=== PATIENT | male | born 1965 | race Caucasian/White ===

== ENCOUNTER 2023-07-21 10:04 | Outpatient (AMB) | payer OTHER, SELFPAY ==
--- NOTE | 2023-07-21 10:12 | MHC.PC.OV ---
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 Assistant Produce Manager Required: No Accompanied by: Self / Same As Patient Allergies No Known Allergies Allergy (Verified 07/21/23 11:20) Medication List - Last Reconciled 07/21/23 by Fadi Salinas MD No Known Home Meds Tobacco use date assessed: 07/21/23 Dental Screening Dental Screen Date: 07/21/23 Did you have a dental visit in the last 12 months?: Yes Did you have a dental problem in the last 6 months where you did not have access to dental care?: No Was dental information given to patient?: Patient has dentist HPI 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 Physical 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 HPI Details Patient comes in today for his annual physical examination and to establish care - is a new patient to the practice His last PCP was in [place] but states that he has not seen his doctor since 2017 States that he has some concerns about his health as he is getting older and feels like he has not had a proper check up in a while Notes that he has been experiencing recurrent pain over the base of his right thumb for a while now but otherwise has no acute issues Denies any history of injury or trauma to his right hand or thumb He denies any headaches or dizziness Denies any chest pains, no shortness of breath but reports experiencing on and off mild chest tightness at times, especially in the fall (kiana) and with increased exertion - is not sure if this is due to his asthma or not Will need his Albuterol inhaler Rx refilled No nausea/ vomiting, no abdominal pain No change in bowel habits noted Denies any acute urinary symptoms He has never had a screening colonoscopy done in the past [facility] Medical History (Updated 07/23/23 @ 21:15 by Fadi Salinas MD) Asthma Surgical History (Updated 07/21/23 @ 11:24 by Fadi Salinas MD) Hx of inguinal hernia repair Family History (Updated 07/21/23 @ 11:24 by Fadi Salinas MD) Father Heart attack Brain cancer Brother Ulcerative colitis Other Hypertension Social History Housing: Apartment Patient Tobacco Use Status: Never used Tobacco e-Cigarette/Vaping Use: Never Used service: No Current occupational status: employed Current occupational exposures/hazards: No Cognitive needs: No Hearing needs: No Vision needs: No Questionnaire PHQ-9 Over the last 2 weeks, how often have you been bothered by any of the following problems? 1. Little interest or pleasure in doing things: not at all 2. Feeling down, depressed, or hopeless: not at all 3. Trouble falling or staying asleep, or sleeping too much: not at all 4. Feeling tired or having little energy: not at all 5. Poor appetite or overeating: not at all 6. Feeling bad about yourself - or that you are a failure or have let yourself or your family down: not at all 7. Trouble concentrating on things, such as reading the newspaper or watching television: not at all 8. Moving or speaking so slowly that other people could have noticed. Or the opposite - being so fidgety or restless that you have been moving around a lot more than usual: not at all 9. Thoughts that you would be better off or of hurting yourself in some way: not at all Total score: 0 Depression Screening Interpretation: Negative Depression Screening Done: Yes 82623 - PHQ-9 Billing: Yes Source: Developed by Drs. Wade Flores, Bekah Blackburn, Renaldo Oliver and colleagues, with an educational reena from [employer]. Thrive Questionnaire Date Thrive assessed: 07/21/23 I am a: Patient What is your living situation today?: I have a steady place to live Within the past 12 months, did the food you bought not last and you didn't have the money to get more?: Never true Within the past 12 months, did you worry whether your food would run out before you got money to buy more?: Never true Do you have trouble paying for medicines?: No Do you have trouble getting transportation to medical appointments?: No Do you have trouble paying your heating and electricity bill?: No Do you have trouble taking care of your child, family member or friend?: No Do you have trouble with day-to-day activities such as bathing, preparing meals, shopping, managing finances, etc.?: No Are you currently unemployed and looking for a job?: No Are you interested in more education?: No Please select the resources that you would like help with: None Currently or been in a relationship where the following occur: no concerns reported AUDIT C Alcohol Use Questionnaire (AUDIT-C) 1. How often do you have a drink containing alcohol?: Monthly or less 2. How many drinks containing alcohol do you have on a typical day when you are drinking?: 1 or 2 3. How often do you have six or more drinks on one occasion?: Never Total Score: 1 Score Reviewed/Action Taken: Yes CARMEN-7 AMB Questionnaire CARMEN-7 Date CARMEN - 7 assessed: 07/21/23 Feeling nervous, anxious, or on edge: 0 = Not at all Not being able to stop or control worryin = Not at all Worrying too much about different things: 0 = Not at all Trouble relaxin = Not at all Being so restless that it is hard to sit still: 0 = Not at all Becoming easily annoyed or irritable: 0 = Not at all Feeling afraid as if something awful might happen: 0 = Not at all Total CARMEN-7 score (0-4 normal; 5-9 mild; 10-14 moderate; 15-21 severe): 0 Source: Developed by Drs. Wade Flores, Bekah Blackburn, Renaldo Oliver and colleagues, with an educational reena from [employer]. Review of Systems Const Denies chills, Reports difficulty sleeping (at times), Denies fatigue, Denies fever(s), Denies headache(s), Denies malaise and Denies weakness Eyes Denies blurry vision, Denies change in vision, Denies irritation and Denies itchy eyes ENT Denies dysphagia, Denies dizziness, Denies otalgia, Denies headache(s), Denies nasal congestion, Denies neck pain, Denies odynophagia and Denies sore throat Card Denies chest pain, Denies rapid heart rate, Denies irregular heart rhythm, Denies palpitations and Denies dyspnea Resp Denies chest congestion (but (+) chest tightness at times, especially in the fall and with exertion), Denies cough, Denies dyspnea and Denies wheezing GI Denies abdominal pain, Denies bloating, Denies constipation, Denies dysphagia, Denies heartburn, Denies diarrhea, Denies nausea, Denies odynophagia and Denies vomiting Denies hematuria, Denies difficulty urinating, Denies dysuria, Denies urinary frequency and Denies urinary urgency Musc Denies back pain, Reports arthralgias (right wrist, at the base of the thumb), Denies joint swelling, Denies muscle weakness and Denies neck pain Skin/Breast Denies change in pigmentation, Denies lesions, Denies rash and Denies unusual bruising Neuro Denies dizziness, Denies headache(s), Denies paresthesias and Denies weakness Endo Denies fatigue and Denies palpitations Aller/Immun Denies itchy eyes and Denies wheezing Physical exam (Primary Care) Vital Signs: Last Vital Signs Pulse 82 07/21/23 10:23 BP 130/80 07/21/23 11:29 Pulse Ox 97 07/21/23 10:23 Oxygen Delivery Method Room Air 07/21/23 10:23 BMI result Body Mass Index 24.2 Tobacco/Smoking Status: Tobacco use Status Tobacco use date assessed 07/21/23 07/21/23 10:31 Patient Tobacco Use Status Never used Tobacco 07/21/23 10:31 e-Cigarette/Vaping Use Never Used 07/21/23 10:31 PHQ-9: PHQ-9 Score PHQ-9: Total score 0 07/23/23 13:57 Depression Screening Interpretation: Negative Thrive Assessment: Date of Thrive Assessment Date Thrive assessed 07/21/23 07/21/23 10:31 Currently or been in a relationship where the following occur: no concerns reported Const General: no acute distress, alert and awake Orientation/consciousness: patient oriented x3 HENMT Head: Yes normocephalic and Yes atraumatic Ears: external ears normal, TM's normal bilaterally and EAC's normal General nose exam: No nasal discharge present Face and sinus: Yes normal facial exam and Yes sinuses nontender Teeth and gingiva: dentition normal Throat: Yes posterior oropharynx normal and Yes tonsils normal (no TP congestion) Eyes Eyelids: Yes eyelids normal Conjunctivae: conjunctivae normal Pupils: Equal, round and reactive pupils present EOM: EOMs intact bilaterally Neck Neck: Yes no lymphadenopathy and Yes supple Thyroid: Thyroid normal Resp Auscultation: clear to auscultation bilaterally, no rales and no wheezes Cardio Rate: regular rate Rhythm: regular rhythm Heart sounds: Murmur heart sound present systolic soft, II/ and at the left sternal border GI Palpation (GI): Soft to palpation, nontender and No hepatosplenomegaly present Auscultation: normal bowel sounds General: Yes no CVA tenderness Back/Spine/Pelvis Back: no CVA tenderness Thoracic/Lumbar Spine: thoracic and lumbar spine normal to inspection Skin Lesions: no lesions Rashes: no rashes Neuro General: patient oriented x3, moves all extremities, no focal motor deficits and CN's II-XI intact bilaterally Cranial nerves: Yes Equal, round and reactive pupils present Cognition (Neuro): normal cognition Gait exam (Neuro): Normal gait present Extrem General: Yes no clubbing, cyanosis or edema Right upper extremity: Extremity exam: right hand Details: tenderness Location: of the thumb Location: at the MCP joint and no swelling Assessment and Plan Assessment & Plan (1) Annual physical exam: Code(s): Z00.00 - Encounter for general adult medical examination without abnormal findings Plan: Check labs (2) Cardiac murmur: Code(s): R01.1 - Cardiac murmur, unspecified Plan: Advised that he has a soft systolic murmur heard on physical exam, most prominent along the upper left sternal border Patient recalls being told that he has a heart murmur when he was younger and that he eventualy outgrew it when he got older Advised that his current murmur may be a flow murmur instead and this is likely due to the close proximity of his heart to his chest wall Will send him for an echocardiogram for further evaluation (3) Asthma: Code(s): J45.909 - Unspecified asthma, uncomplicated Qualifiers: Asthma complication type: uncomplicated Asthma persistence: intermittent Asthma severity: mild Qualified Code(s): J45.20 - Mild intermittent asthma, uncomplicated Plan: Mild; continue Albuterol HFA 1 to 2 inhalations Q 6 hours PRN - Rx refilled (4) Pain of right thumb: Code(s): M79.644 - Pain in right finger(s) Plan: Will send patient for x-rays of the right hand/thumb for further evaluation (5) Colon cancer screening: Code(s): Z12.11 - Encounter for screening for malignant neoplasm of colon Plan: Will refer patient to GI for screening colonoscopy - has never had one done in the past Plan Follow up in 6 months Orders: Orders Complete Blood Count Auto Diff 07/21/23 Z00.00 - Encounter for general adult medical examination without abnormal findings Comprehensive [place]. Panel Fast 07/21/23 Z00.00 - Encounter for general adult medical examination without abnormal findings Lipid Panel 07/21/23 E78.00 - Pure hypercholesterolemia, unspecified, Z00.00 - Encounter for general adult medical examination without abnormal findings TSH reflex Free T4 07/21/23 E78.00 - Pure hypercholesterolemia, unspecified, Z00.00 - Encounter for general adult medical examination without abnormal findings UA CC w/rflx Micro + Cult 07/21/23 R30.0 - Dysuria, Z00.00 - Encounter for general adult medical examination without abnormal findings CA echo transthoracic complete 07/21/23 R01.1 - Cardiac murmur, unspecified Vitamin D 25-OH Total 07/21/23 E55.9 - Vitamin D deficiency, unspecified, Z00.00 - Encounter for general adult medical examination without abnormal findings Prostate Specific Antigen 07/21/23 N40.0 - Benign prostatic hyperplasia without lower urinary tract symptoms, Z00.00 - Encounter for general adult medical examination without abnormal findings XR hand RT min 3V 07/21/23 M79.644 - Pain in right finger(s) Referrals Gastroenterology Referral Z12.11 - Encounter for screening for malignant neoplasm of colon Medications: New albuterol sulfate 90 mcg/actuation (Ventolin HFA) 2 puffs inhalation Q6H 30 days PRN 8.5 grams 5RF shortness of breath or wheezing Coding Level of Care Code New Pt Prev Care 40-64y(69903) Diagnoses Annual physical exam Z00.00 Cardiac murmur R01.1 Mild intermittent asthma without complication J45.20 Asthma complication type: uncomplicated Asthma persistence: intermittent Asthma severity: mild Pain of right thumb M79.644 Colon cancer screening Z12.11
[2023-07-21 10:23] VITALS: BP 142/100; PULSE 82; O2SAT 97; BMI 24.2
[2023-07-21 11:29] VITALS: BP 130/80
== END 2023-07-21 11:41 | disposition home or self-care (01) ==
PROVIDERS: PCP Internal Medicine; Visit Provider Internal Medicine
DX: Z00.00 Encounter for general adult medical examination without abnormal findings (principal); R01.1 Cardiac murmur, unspecified; J45.20 Mild intermittent asthma, uncomplicated; M79.644 Pain in right finger(s); Z12.11 Encounter for screening for malignant neoplasm of colon
CPT/HCPCS: 99386

== ENCOUNTER → 2023-08-10 13:37 | Outpatient (REF) | payer OTHER, SELFPAY ==
--- NOTE | 2023-08-10 13:42 | CA_ITS ---
Transthoracic Echocardiogram Patient (Last, First, Middle): Darren Hdez J Gender: Male Date of : 1965 Age: 58 Procedure Date: 08/10/2023 Procedure Type: Transthoracic Echocardiogram Location: OP Height: 182.88 cm Weight: 74.84 kg BSA: 1.96 m2 Heart Rate: 65 bpm BP: 120 / 85 mmHg School Manager: NELSON Referring MD: Fadi Salinas MD Fleet Service Clerk: Pravin Young MD Symptoms: R01.1 - Cardiac murmur, unspecified Study Quality: Adequate ECG Rhythm: Sinus Conclusions: - 1. Normal LV ejection fraction at 60-65% with normal diastolic filling pattern 2. Bicuspid aortic valve without any abnormal Doppler findings 3. Normal RV systolic pressure 4. Moderately dilated aortic root at 4.6 cm and upper limits of normal ascending aortic size at 3.6 cm 5. No gross pericardial effusion Findings Left Ventricle Normal left ventricular size, thickness, and systolic function. The visually estimated ejection fraction is between 60-65%. Spectral Doppler is indicative of a normal filling pattern. Peak GLS is not tracking completely and therefore no reliable. Right Ventricle Normal right ventricular cavity size and systolic function. Atria The left atrium is likely dilated. Interatrial shunt cannot be excluded. The right atrium is normal in size. Aortic Valve There is a bicuspid aortic valve. There is no aortic valve stenosis. There is no aortic valve regurgitation. Mitral Valve Normal mitral valve structure and function. There is trace mitral valve regurgitation. There is no mitral valve stenosis. Pulmonic Valve The pulmonic valve is likely normal. Tricuspid Valve Normal tricuspid valve structure. There is trace tricuspid valve regurgitation. The right ventricular systolic pressure is normal. The right ventricular systolic pressure is 21 mmHg. Normal right atrial pressure. There is no evidence of pulmonary hypertension. Great Vessels The pulmonary artery was not well visualized. There is moderate dilatation of the sinuses of Valsalva measuring 4.60 cm. Venous The inferior vena cava is normal in size and collapses greater than 50% with inspiration. Pericardium/Pleural There is no evidence of pericardial effusion. Prior Study Comparison No prior study available for comparison. Measurements 2D Linear Measurements IVSd: 1.12 0.6-0.9/0.6-1.0 cm LVIDd: 5.19 3.9-5.3/4.2-5.9 cm LVIDd Index: 2.65 2.4-3.2/2.2-3.1 cm/m2 LVIDs: 3.76 2.0-3.6 cm LVPWd: 0.71 0.7-1.1 cm LA Diam: 3.20 2.7-3.8/3.0-4.0 cm LAIDs Index: 1.63 1.5-2.3 cm/m2 LV Mass: 213.63 67-162/88-224 g LV Mass Index: 108.99 43-95/49-115 g/m2 LVOT Diam: 2.60 3.0+(-)1.3 cm 2D Systolic Function EF 4C: 53.00 >55% EF 2C: 68.80 >55% EF BiP: 60.80 >55% Mitral Valve MV Pk E: 0.86 MV PK A: 0.55 MV Decel Time: 211.00 E/A: 1.50 E'Lateral: 9.25 E'Medial: 5.98 E/E' Med: 14.30 E/E' Lat: 9.30 PHT: 62.00 MVA PHT: 3.55 Decel [place]: 4.06 Aortic Valve AoV Pk Alex: 1.60 AoV Mn Alex: 1.14 AoV VTI: 0.32 AoV Pk Grad: 10.00 Aov Mn Grad: 6.00 RUBEN Cont.VTI: 2.58 LVOT LVOT Pk Alex: 0.73 LVOT Mn Alex: 0.54 LVOT VTI: 0.15 LVOT Pk Grad: 2.00 LVOT Mn Grad: 1.00 LVOT Diam: 2.60 LVOT Area: 5.31 Diastolic Function MV Pk E: 0.86 MV Pk A: 0.55 E/A: 1.50 E'Medial: 5.98 E/E' Med: 14.30 E' Laterial: 9.25 E/E' Lat: 9.30 Right Ventricle TAPSE (mm): 19.30 TVS' Alex: 9.79 Tricuspid Valve TR Pk Alex: 2.13 TR Pk Grad: 18.00 RA Press: 3.00 RVSP: 21.00 Great Vessels Aorta Sinus of Valsalva: 4.60 2.0-3.5 cm Ao Asc: 3.60 2.1-3.4 cm Ao Arch: 3.20 Pulmonary Veins Pulm Vein S/D 1.20 Pulmonary Valve PV Pk Alex: 0.84 Peak PV Grad: 3.00 ID Pk Alex: 1.93 Updated in Other Vendor System with Status of Final Pravin Young MD electronically signed on 08/10/2023 3:22:50 PM with status of Final
== END ==
LOC: HO.CARD 13:37
PROVIDERS: PCP Internal Medicine; Visit Provider Internal Medicine
DX: R01.1 Cardiac murmur, unspecified (principal)
CPT/HCPCS: 93306

== ENCOUNTER → 2023-08-10 13:42 | Outpatient (BNV) | payer OTHER, SELFPAY | PROVIDERS: PCP Internal Medicine; Visit Provider Internal Medicine Cardiovascular Disease | DX: R01.1 Cardiac murmur, unspecified (principal) | CPT/HCPCS: 93306 ==

== ENCOUNTER 2023-08-30 15:45 | Outpatient (AMB) | payer OTHER, SELFPAY ==
--- NOTE | 2023-08-30 15:47 | MHC.OFFVIS ---
Intake Vital Signs 08/30/23 15:48 Height 6 ft 1 in Weight 176 lb 5.917 oz BMI 23.3 BP 125/83 Blood Pressure Location Lt brachial Position Sitting Pulse 77 Intake Visit Reasons: Colonoscopy Screening Intake Note: Darren presents in the office as a new patient colonoscopy screening. CC: No concerns today just due for a colonoscopy. Traffic Control Technician Required: No Allergies No Known Allergies Allergy (Verified 08/30/23 15:49) HPI Colonoscopy Screening HPI Details 58 year old? male here today for pre colonoscopy screening.? Patient was sent to us by his PCP.? This is his first colonoscopy screening.? Patient denies any gastrointestinal symptoms in the past or at present.? Denies any personal or family history of colon polyps, or cancer.? Patient's brother was diagnosed with ulcerative colitis. Patient denies any abdominal pain, diarrhea, no mucus in his stools. Denies melena, hematochezia. Denies history of difficulty with sedation or anesthesia in the past.? Negative for history of sleep apnea.? Denies any history of cardiac, renal, pulmonary, or hepatic disease.?? No history of infectious? diseases like hepatitis A, B, C, HIV or tuberculosis.? Patient is not on any anticoagulation therapy. [facility] Medical History Asthma Surgical History Hx of inguinal hernia repair Family History (Updated 08/30/23 @ 15:51 by SURESH Gloria) Father Brain cancer Brother Ulcerative colitis Heart attack Mother Heart problem Other Hypertension Social History Housing: Apartment Patient Tobacco Use Status: Never used Tobacco e-Cigarette/Vaping Use: Never Used service: No Current occupational status: employed Current occupational exposures/hazards: No Cognitive needs: No Hearing needs: No Vision needs: No Review of Systems Const Denies weight gain and Denies weight loss ENT Reports no additional complaints, Denies dysphagia and Denies odynophagia Card Reports no additional complaints Resp Reports no additional complaints GI Denies abdominal pain, Denies belching, Denies melena, Denies bloating, Denies change in bowel habits, Denies dysphagia, Denies excessive flatus, Denies dyspepsia, Denies heartburn, Denies diarrhea, Denies loose stools, Denies nausea, Denies odynophagia and Denies vomiting Reports no additional complaints Musc Reports no additional complaints Neuro Reports no additional complaints Psych Reports no additional complaints Endo Reports no additional complaints Physical Exam Vital Signs: Last Vital Signs Pulse 77 08/30/23 15:48 BP 125/83 08/30/23 15:48 BMI result Body Mass Index 23.3 Const General: healthy appearing, no acute distress and well developed Nutritional Appearance: well nourished Orientation/consciousness: patient oriented x3 Resp Effort & Inspection: normal respiratory effort, able to speak in complete sentences, no tracheal deviation and symmetric chest movement Auscultation: clear to auscultation bilaterally Cardio Rate: regular rate GI Inspection: Yes normal to inspection and No distended Palpation (GI): Soft to palpation, not firm, nontender and No hepatosplenomegaly present Auscultation: normal bowel sounds General: Yes no CVA tenderness Back/Spine/Pelvis Back: no CVA tenderness Skin General skin exam: elasticity normal, turgor normal and dry skin Neuro General: patient oriented x3 Psych Appearance: grossly normal Mental Status: mental status grossly normal Assessment & Plan Assessment & Plan (1) Colon cancer screening: Code(s): Z12.11 - Encounter for screening for malignant neoplasm of colon Plan Patient denies any GI, cardiac or respiratory symptoms.? Denies any issues with anesthesia in the past.? Denies any history of sleep apnea.? No history infectious diseases in the past or present.? Not on any anticoagulation therapy.? No family or personal history of colon cancer or polyps.? Patient denies melena, hematochezia, unintentional weight loss or ribbon like stools.? Discussed at length the pre-procedure,? prep, diet & medications as well as what to expect prior, during and after the procedure.?? Patient has a history of asthma has been using his albuterol inhaler almost daily. Patient was encouraged to bring his inhaler to the hospital so he can use it before going for the procedure. Stressed the importance of good bowel prep. ?Recommended the use of Vaseline or Calmoseptine OTC & baby wipes with bowel movements to promote comfort.? ?Patient verbalizes understanding and agrees to plan of care.? He was given the opportunity to ask questions and all questions answered.? We will see him after the procedure.? Medications: New polyethylene glycol 3350 (Miralax) As directed by gastroenterology department at [facility] 238 grams PO ONCE 238 grams 0RF Z12.11 - Encounter for screening for malignant neoplasm of colon bisacodyl (Dulcolax (bisacodyl)) take 4 tabs at noon the day before your colonoscopy 20 mg (4 x 5 mg) PO ONCE 1 day 4 tabs 0RF Z12.11 - Encounter for screening for malignant neoplasm of colon Coding Level of Care Code New Pt Level 3 (71791) Diagnoses Colon cancer screening Z12.11 Time Spent (min) 40 Comment 30 minutes spent with patient and additional 10 minutes spent reviewing his records
[2023-08-30 15:48] VITALS: BP 125/83; PULSE 77; BMI 23.3
== END 2023-08-30 17:09 | disposition home or self-care (01) ==
PROVIDERS: PCP Internal Medicine; Visit Provider Nurse Practitioner Family
DX: Z01.818 Encounter for other preprocedural examination (principal); Z12.11 Encounter for screening for malignant neoplasm of colon
CPT/HCPCS: S0285

== ENCOUNTER → 2023-08-30 15:45 | Outpatient (BNVA) | payer OTHER, SELFPAY | PROVIDERS: PCP Internal Medicine; Visit Provider Nurse Practitioner Family ==

== ENCOUNTER 2024-01-01 10:33 | Day surgery (SDC) | payer OTHER, SELFPAY ==
--- NOTE | 2023-12-28 13:00 | HO.ANESPROP2 ---
Documented by User: Yudy Vargas NP 12/28/23 13:01 HPI - Anesthesia Eval Consult details Narrative: 58yo M for Colonoscopy [facility] Active Problems Active Problems: All Active Problems Colon cancer screening (Acute) Pain of right thumb (Acute) Asthma (Acute) Cardiac murmur (Acute) Annual physical exam (Acute) Past Medical History Medical History Asthma Family History Family History (Updated 08/30/23 @ 15:51 by SURESH Gloria) Father Brain cancer Brother Ulcerative colitis Heart attack Mother Heart problem Other Hypertension Surgical History Surgical History Hx of inguinal hernia repair Social History Social History Housing: Apartment Patient Tobacco Use Status: Never used Tobacco e-Cigarette/Vaping Use: Never Used Use of substances other than those prescribed or required for medical reasons: No Are you DNR?: No Advance Directives: No Advance Directives Information Provided: Yes service: No Current occupational status: employed Current occupational exposures/hazards: No Cognitive needs: No Hearing needs: No Vision needs: No Meds Allergies Allergy/AdvReac Type Severity Reaction Status Date / Time No Known Allergies Allergy Verified 08/30/23 15:49 Exam Narrative Narrative: ECHO 07/2023 Conclusions: - 1. Normal LV ejection fraction at 60-65% with normal diastolic filling pattern 2. Bicuspid aortic valve without any abnormal Doppler findings 3. Normal RV systolic pressure 4. Moderately dilated aortic root at 4.6 cm and upper limits of normal ascending aortic size at 3.6 cm 5. No gross pericardial effusion Assessment and Plan Assessment Anesthesia Assessment: Chart Reviewed Documented by User: Hortencia Sheppard MD 01/01/24 10:58 [facility] Past Medical History Medical History Asthma Family History Family History (Updated 08/30/23 @ 15:51 by SURESH Gloria) Father Brain cancer Brother Ulcerative colitis Heart attack Mother Heart problem Other Hypertension Family history of problems with anesthesia: No Surgical History Surgical History Hx of inguinal hernia repair History of Problems with Anesthesia: No Social History Social History Housing: Apartment Patient Tobacco Use Status: Never used Tobacco e-Cigarette/Vaping Use: Never Used Use of substances other than those prescribed or required for medical reasons: No Are you DNR?: No Advance Directives: No Advance Directives Information Provided: Yes service: No Current occupational status: employed Current occupational exposures/hazards: No Cognitive needs: No Hearing needs: No Vision needs: No Meds Allergies Allergy/AdvReac Type Severity Reaction Status Date / Time No Known Allergies Allergy Verified 08/30/23 15:49 Exam Airway Mallampati Class: II (cap top left) TM Dist: >3cm Neck ROM: Full Heart: rrr Lungs: cta Assessment and Plan Assessment Anesthesia Assessment: Anesthesia Plan Discussed Final Anesthetic Review Family History of Problems with Anesthesia: No History of Problems with Anesthesia: No NPO: Yes ASA Class: II Final Preanesthetic Review: No Changes in Pt Med Stat, Meds/Allgs Chart Reviewed and Consent Obtained/Reviewed Patient Risk: Low Procedure Risk: Low Anesthetic Plan Anesthetic Plan: MAC: Disposition: Standard PACU
[2024-01-01 10:48] VITALS: BMI 22.8
[2024-01-01 10:51] VITALS: BP 131/82; PULSE 112; RESP 18; TEMP 36.5; O2SAT 95
--- NOTE | 2024-01-01 10:54 | MHC.SHP ---
Pre-Procedural Eval Section A - 24 Hr Update-Section A only Date of Service: 01/01/24 Section B - Complete if H&P > 30 days Chief Complaint: Encounter for screening for malignant neoplasm of Relevant Family History (Specify if Yes): No Relevant Social History: None Present Medications: see Short Stay Collaborative assessment Medical History: Significant History (Asthma) History of Previous Operations: Relevant previous surgery/procedure and date(s) (inguinal hernia repair ) Allergies: Allergies Allergy/AdvReac Type Severity Reaction Status Date / Time No Known Allergies Allergy Verified 08/30/23 15:49 Review of Systems Sugical H&P ROS: Negative: Constitution, Cardiovascular, Respiratory, Neurological, Psychiatric, Hem-Onc, Allergic/Immunologic, Gastrointestinal, Genitourinary, Musculoskeletal, Integumentary, Endocrine and Eyes/Ears/Nose/Throat Exam Surgical H&P Exam: Normal: HEENT, Normal: Heart, Normal: Lungs, Normal: Extremities, Normal: Abdomen, Normal: Skin and Normal: Neurological Plan Diagnosis/Plan: Unchanged I have reviewed the history and physical and performed a pertinent physical examination on my patient. No changes have occurred unless specified. Time Spent With Patient Time: Total time managing care of this patient today ____ minutes.
--- NOTE | 2024-01-01 11:34 | P.OPN-COLO_ITS ---
Colonoscopy Operative Note Operative Note Date of Service: 01/01/24 Narrative: Operative Information Procedure Description: Colonoscopy Indication: screening Anesthesia: MAC COLONOSCOPY Instrument: Olympus variable stiffness ADULT scope 190L Colonoscopy Monitoring: Vital signs and clinical assessment, continuous EKG monitoring, Pulse oximetry, Carbon Dioxide monitoring and blood pressure monitoring were done throughout the procedure. Colon withdrawal time was 11 minutes. Procedure: The patient was placed in the left lateral decubitis position and pre-procedure medications were administered. After a digital rectal examination of the ano-rectum, the video colonoscope was inserted into the rectum and advanced through the colon to the cecum/TI. The colonoscope was slowly withdrawn in a retrograde panoramic fashion and the colon mucosa was carefully examined including a retroflexed view of the rectum. Findings and interventions are described below. Procedure Difficulty: easy Findings: Terminal Ileum-normal Cecum:normal right sided retroflexion- normal Ascending Colon: normal Transverse Colon -normal Descending Colon:normal Sigmoid Colon: normal Rectum: Retroflexion with small internal hemorrhoids seen, grade I Anorectum - normal Intervention: none Colon preparation: [place] Bowel Preparation Scale Right colon; 2 Transverse colon: 2 Left colon; 2 (0 = Unprepared colon segment with mucosa not seen due to solid stool that cannot be cleared. 1 = Portion of mucosa of the colon segment seen, but other areas of the colon segment not well seen due to staining, residual stool and/or opaque liquid. 2 = Minor amount of residual staining, small fragments of stool and/or opaque liquid, but mucosa of colon segment seen well. 3 = Entire mucosa of colon segment seen well with no residual staining, small fragments of stool or opaque liquid) Impression and Post Procedure Diagnosis: internal hemorrhoids Plan: High fiber diet leaflet Avoid straining at stool, epsom salts and sitz bath, anusol supps or cream Repeat Colonoscopy in 10 years or earlier if clinically indicated Above findings were reviewed with the patient and relevant handouts were provided if indicated.
[2024-01-01 11:35] VITALS: BP 122/82; PULSE 117; RESP 16; TEMP 36.4; O2SAT 92
[2024-01-01 11:50] VITALS: BP 111/80; PULSE 107; RESP 18; O2SAT 100
[2024-01-01 12:05] VITALS: BP 110/82; PULSE 101; RESP 18; TEMP 36.4; O2SAT 98
== END 2024-01-01 13:08 | disposition home or self-care (01) ==
PROVIDERS: PCP Internal Medicine; Visit Provider Internal Medicine Gastroenterology
PROC: 0DJD8ZZ Inspection of Lower Intestinal Tract, Via Natural or Artificial Opening Endoscopic (ICD-10-PCS; CPT 45378; principal; 2024-01-01 13:10)
DX: Z12.11 Encounter for screening for malignant neoplasm of colon (principal); K64.0 First degree hemorrhoids; J45.909 Unspecified asthma, uncomplicated
CPT/HCPCS: 45378; J2250; J2704

== ENCOUNTER → 2024-01-01 10:33 | Outpatient (BNV) | payer OTHER, SELFPAY | PROVIDERS: PCP Internal Medicine; Visit Provider Internal Medicine Gastroenterology | DX: Z12.11 Encounter for screening for malignant neoplasm of colon (principal); K64.0 First degree hemorrhoids | CPT/HCPCS: 45378 ==

== ENCOUNTER 2024-01-23 10:03 | Outpatient (AMB) | payer OTHER, SELFPAY ==
--- NOTE | 2024-01-23 10:09 | A.OFFPC_ITS ---
Vital Signs 01/23/24 10:18 Height 6 ft 1 in Weight 179 lb BMI 23.6 BP 132/80 Blood Pressure Location Lt brachial Position Sitting Pulse 67 Pulse Source Pulse Oximeter Temp 98.2 F Temp Source Oral Pulse Oximetry (%) 94 Oxygen Delivery Method Room Air Intake Visit Reasons: asthma, elevated BP Printing Technician Required: No Allergies No Known Allergies Allergy (Verified 01/23/24 10:48) Medication List - Last Reconciled 01/23/24 by Fadi Salinas MD albuterol sulfate 90 mcg/actuation (Ventolin HFA) 2 puffs inhalation Q6H PRN 30 days Tobacco use date assessed: 01/23/24 Dental Screening Dental Screen Date: 01/23/24 HPI asthma, elevated BP HPI Details Patient comes in today for further evaluation of his increased cough and congestion, which he states started yesterday States that he was coughing so much at work earlier today that his boss sent him home and asked him to get checked out for pneumonia States that his boss had similar symptoms and was recently diagnosed with pneumonia Patient feels that his asthma has been acting up more frequently over the past few weeks and he's had to use his rescue inhaler a lot more often than he has in the past lately He denies any fever or sore throat; denies any headaches or dizziness Denies any chest pains; notes that his chest has been feeling tight at times lately and he has been coughing up thick whitish phlegm at times but he denies any wheezing - symptoms are promptly relieved temporarily when he uses his Albuterol inhaler No nausea/vomiting, no abdominal pain No change in bowel habits noted He has also reportedly noticed that his blood pressure has been running high lately but it looks okay today [facility] Medical History (Updated 01/23/24 @ 12:47 by Fadi Salinas MD) Bicuspid aortic valve Mixed hyperlipidemia Asthma Surgical History (Updated 01/23/24 @ 10:50 by Fadi Salinas MD) History of colonoscopy Hx of inguinal hernia repair Family History Father Brain cancer Brother Ulcerative colitis Heart attack Mother Heart problem Other Hypertension Social History Housing: Apartment Patient Tobacco Use Status: Never used Tobacco e-Cigarette/Vaping Use: Never Used service: No Current occupational status: employed Current occupational exposures/hazards: No Cognitive needs: No Hearing needs: No Vision needs: No Questionnaire PHQ-9 Over the last 2 weeks, how often have you been bothered by any of the following problems? 1. Little interest or pleasure in doing things: not at all 2. Feeling down, depressed, or hopeless: not at all 3. Trouble falling or staying asleep, or sleeping too much: not at all 4. Feeling tired or having little energy: not at all 5. Poor appetite or overeating: not at all 6. Feeling bad about yourself - or that you are a failure or have let yourself or your family down: not at all 7. Trouble concentrating on things, such as reading the newspaper or watching television: not at all 8. Moving or speaking so slowly that other people could have noticed. Or the opposite - being so fidgety or restless that you have been moving around a lot more than usual: not at all 9. Thoughts that you would be better off or of hurting yourself in some way: not at all Total score: 0 Depression Screening Interpretation: Negative Depression Screening Done: Yes 49519 - PHQ-9 Billing: Yes Source: Developed by Drs. Wade Flores, Bekah Blackburn, Renaldo Oliver and colleagues, with an educational reena from [employer]. Thrive Questionnaire Date Thrive assessed: 01/23/24 I am a: Patient What is your living situation today?: I have a steady place to live Within the past 12 months, did the food you bought not last and you didn't have the money to get more?: Never true Within the past 12 months, did you worry whether your food would run out before you got money to buy more?: Never true Do you have trouble paying for medicines?: No Do you have trouble getting transportation to medical appointments?: No Do you have trouble paying your heating and electricity bill?: No Do you have trouble taking care of your child, family member or friend?: No Do you have trouble with day-to-day activities such as bathing, preparing meals, shopping, managing finances, etc.?: No Are you currently unemployed and looking for a job?: No Are you interested in more education?: No Please select the resources that you would like help with: None Currently or been in a relationship where the following occur: no concerns reported THRIVE Score: 0 AUDIT C Alcohol Use Questionnaire (AUDIT-C) 1. How often do you have a drink containing alcohol?: Monthly or less 2. How many drinks containing alcohol do you have on a typical day when you are drinking?: 1 or 2 3. How often do you have six or more drinks on one occasion?: Never Total Score: 1 Score Reviewed/Action Taken: Yes CARMEN-7 AMB Questionnaire CARMEN-7 Date CARMEN - 7 assessed: 01/23/24 Feeling nervous, anxious, or on edge: 0 = Not at all Not being able to stop or control worryin = Not at all Worrying too much about different things: 0 = Not at all Trouble relaxin = Not at all Being so restless that it is hard to sit still: 0 = Not at all Becoming easily annoyed or irritable: 0 = Not at all Feeling afraid as if something awful might happen: 0 = Not at all Total CARMEN-7 score (0-4 normal; 5-9 mild; 10-14 moderate; 15-21 severe): 0 Source: Developed by Drs. Wade Flores, Bekah Blackburn, Renaldo Oliver and colleagues, with an educational reena from [employer]. CARMEN-7 Assessment Billing CARMEN-7 Assessment Tool: CARMEN-7 Assessment 40818 Review of Systems Const Denies chills, Denies fatigue, Denies fever(s) and Denies headache(s) ENT Denies dysphagia, Denies dizziness, Denies otalgia, Denies headache(s), Denies neck pain, Denies odynophagia and Denies sore throat Card Denies chest pain, Denies palpitations and Reports dyspnea on exertion (mild) Resp Denies chest congestion (but chest feels tight at times), Reports cough (recurrent; coughs up thick whitish phlegm at times), Reports dyspnea on exertion (mild) and Denies wheezing GI Denies abdominal pain, Denies constipation, Denies dysphagia, Denies heartburn, Denies diarrhea, Denies nausea, Denies odynophagia and Denies vomiting Denies dysuria, Denies nocturia and Denies urinary frequency Musc Denies back pain and Denies neck pain Skin/Breast Denies rash Neuro Denies dizziness and Denies headache(s) Endo Denies fatigue and Denies palpitations Aller/Immun Denies wheezing Physical exam (Primary Care) Vital Signs: Last Vital Signs Temp 98.2 F 01/23/24 10:18 Pulse 67 01/23/24 10:18 BP 132/80 01/23/24 10:18 Pulse Ox 94 01/23/24 10:18 Oxygen Delivery Method Room Air 01/23/24 10:18 BMI result Body Mass Index 23.6 Tobacco/Smoking Status: Tobacco use Status Tobacco use date assessed 01/23/24 01/23/24 10:19 Patient Tobacco Use Status Never used Tobacco 01/23/24 10:10 e-Cigarette/Vaping Use Never Used 01/23/24 10:10 PHQ-9: PHQ-9 Score PHQ-9: Total score 0 01/23/24 10:19 Depression Screening Interpretation: Negative Thrive Assessment: Date of Thrive Assessment Date Thrive assessed 01/23/24 01/23/24 10:19 Currently or been in a relationship where the following occur: no concerns reported Const General: no acute distress and alert HENMT Ears: TM's normal bilaterally and EAC's normal Throat: Yes posterior oropharynx normal and Yes tonsils normal (no TP congestion) Neck Neck: Yes no lymphadenopathy and Yes supple Thyroid: Thyroid normal Resp Auscultation: no crackles, no rales, rhonchi (scattered) throughout, no wheezes and diminished lung sounds (slightly) bilateral Cardio Rate: regular rate Rhythm: regular rhythm Heart sounds: Murmur heart sound present systolic soft, II/ and at the left sternal border GI Palpation (GI): Soft to palpation and nontender Auscultation: normal bowel sounds General: Yes no CVA tenderness Back/Spine/Pelvis Back: no CVA tenderness Skin Rashes: no rashes Extrem General: Yes no clubbing, cyanosis or edema Assessment and Plan Assessment & Plan (1) Respiratory tract infection: Code(s): J98.8 - Other specified respiratory disorders Plan: Will send patient for chest x-rays SARAH to r/o pneumonia - advised that this is more of a precaution than anything else Will go ahead and start him empirically for now on Azithromycin QD x 5 days (2) Asthma exacerbation: Code(s): J45.901 - Unspecified asthma with (acute) exacerbation Qualifiers: Asthma severity: mild Asthma persistence: persistent Qualified Code(s): J45.31 - Mild persistent asthma with (acute) exacerbation Plan: Continue Albuterol HFA 1 to 2 inhalations Q 6 hours PRN for now He is advised that he currently does not appear to have any significant wheezing noted on physical exam and that his asthma is not severe enough to require Tx with oral Prednisone yet Have discussed with patient that if he continues to require the frequent use of his rescue inhaler once his current respiratory infection resolves, then we may have to consider starting him on a controller inhaler for better long-term control of his asthma (3) Mixed hyperlipidemia: Comment: [phone] Code(s): E78.2 - Mixed hyperlipidemia Plan: He is advised that his labs done at [facility] back in May 2023 revealed (+) elevated cholesterol levels - his total cholesterol then was at 279 mg/dl, serum TG level was at 200 mg/dl and his LDL cholesterol was at 155 mg/dl Reinforced low cholesterol diet Will have him recheck his labs and fasting lipids in 6 months for follow up (4) Cardiac murmur: Code(s): R01.1 - Cardiac murmur, unspecified Plan: He has a soft systolic murmur heard on his physical exam, most prominent along the upper left sternal border Patient recalled being told that he has a heart murmur when he was younger and felt that he eventually outgrew it as he got older He was sent previously for an echocardiogram for further evaluation - echocardiogram done in July 2023 revealed normal LV ejection fraction at 60- 65% with normal diastolic filling pattern; bicuspid aortic valve without any abnormal doppler findings, normal RV systolic pressure; moderately dilated aortic root at 4.6 cm and upper limits of normal ascending aortic size at 3.6 cm; no gross pericardial effusion (5) Bicuspid aortic valve: Code(s): Q23.1 - Congenital insufficiency of aortic valve Plan: He is advised that he has a bicuspid aortic valve and this will need to be monitored regularly for any changes in the future Will also consider referring him to cardiology for continuing management and surveillance Plan To return in 6 months for his next annual physical examination Orders: Orders XR chest 2V Today J98.8 - Other specified respiratory disorders Medications: New azithromycin take 500 mg today (day 1), then 250 mg for 4 days (days 2-5) PO 6 tabs 0RF Coding Level of Care Code Est Pt Level 4 (83630) Diagnoses Respiratory tract infection J98.8 Mild persistent asthma with exacerbation J45.31 Asthma severity: mild Asthma persistence: persistent Mixed hyperlipidemia E78.2 Cardiac murmur R01.1 Bicuspid aortic valve Q23.1 Additional Codes CARMEN-7 Assessment Billing - CARMEN-7 Assessment Tool: CARMEN-7 Assessment 76803 ([id number])
[2024-01-23 10:18] VITALS: BP 132/80; PULSE 67; TEMP 36.8; O2SAT 94; BMI 23.6
== END 2024-01-23 10:56 | disposition home or self-care (01) ==
PROVIDERS: PCP Internal Medicine; Visit Provider Internal Medicine
DX: J98.8 Other specified respiratory disorders (principal); J45.31 Mild persistent asthma with (acute) exacerbation; E78.2 Mixed hyperlipidemia; R01.1 Cardiac murmur, unspecified; Q23.1 Congenital insufficiency of aortic valve
CPT/HCPCS: 99214

== ENCOUNTER 2024-01-23 10:59 | Outpatient (REF) | payer OTHER, SELFPAY ==
--- NOTE | ~2024-01-23 | XR_ITS ---
EXAMINATION: XR CHEST 2 VIEW CLINICAL INFORMATION: Shortness of breath and chest pain, rule out pneumonia COMPARISON: None TECHNIQUE: PA and lateral views of the chest obtained. FINDINGS: The lungs are clear. There are no pleural effusions. The cardiomediastinal silhouette is normal. XR/XR chest 2V IMPRESSION: No acute disease.
== END 2024-01-23 11:00 | disposition home or self-care (01) ==
LOC: HO.XRAY 10:59
PROVIDERS: PCP Internal Medicine; Visit Provider Internal Medicine
DX: J98.8 Other specified respiratory disorders (principal)
CPT/HCPCS: 71046

== ENCOUNTER 2024-07-26 14:55 | Outpatient (AMB) | payer OTHER, SELFPAY ==
[2024-07-26 15:05] VITALS: BP 120/84; PULSE 80; O2SAT 96; BMI 25.1
--- NOTE | 2024-07-26 15:05 | A.OFFPC_ITS ---
Vital Signs 07/26/24 15:05 Height 6 ft 1 in Weight 190 lb 8 oz BMI 25.1 BP 120/84 Blood Pressure Location Lt brachial Position Sitting Pulse 80 Pulse Source Pulse Oximeter Pulse Oximetry (%) 96 Oxygen Delivery Method Room Air Intake Visit Reasons: Annual Exam Assessment Nurse Required: No Accompanied by: Self / Same As Patient Allergies No Known Allergies Allergy (Verified 07/26/24 15:50) Medication List - Last Reconciled 07/26/24 by Fadi Salinas MD albuterol sulfate 90 mcg/actuation (Ventolin HFA) 2 puffs inhalation Q6H PRN 30 days Arnuity Ellipta 100 mcg/actuation (fluticasone furoate) 1 inh inhalation DAILY NS erythromycin 0.5 inches ophthalmic (eye) TID 7 days Tobacco use date assessed: 07/26/24 Dental Screening Dental Screen Date: 07/26/24 Did you have a dental visit in the last 12 months?: Yes Did you have a dental problem in the last 6 months where you did not have access to dental care?: No Was dental information given to patient?: Patient has dentist HPI Annual Exam HPI Details Patient comes in today for his annual physical examination States that he feels okay He is still experiencing the recurrent pain over the base of his right thumb that he had from over a year ago - states that he never went and got his x-rays done and would like to have the x-rays reordered now and he will get it done this time SARAH He denies any headaches or dizziness Denies any chest pains, no shortness of breath No nausea/vomiting, no abdominal pain No change in bowel habits noted He denies any acute urinary symptoms Adds that the redness and irritation in his left eye (due to pink eye ) are improving with the Erythromycin eye ointment that I prescribed for his a few days ago has helped a lot - he currently still has some redness and mild irritation in his left eye but states that his symptoms have improved a lot lately He had his screening colonoscopy done back on 01/01/2024 - colonoscopy was normal except for some internal hemorrhoids and he was advised that his next colonoscopy will be in 10 years [facility] Medical History (Updated 07/27/24 @ 06:58 by Fadi Salinas MD) Aortic dilatation Bicuspid aortic valve Mixed hyperlipidemia Asthma Surgical History History of colonoscopy Hx of inguinal hernia repair Family History Father Brain cancer Brother Ulcerative colitis Heart attack Mother Heart problem Other Hypertension Social History Housing: Apartment Patient Tobacco Use Status: Never used Tobacco e-Cigarette/Vaping Use: Never Used service: No Current occupational status: employed Current occupational exposures/hazards: No Cognitive needs: No Hearing needs: No Vision needs: No Questionnaire PHQ-9 Over the last 2 weeks, how often have you been bothered by any of the following problems? 1. Little interest or pleasure in doing things: not at all 2. Feeling down, depressed, or hopeless: not at all 3. Trouble falling or staying asleep, or sleeping too much: not at all 4. Feeling tired or having little energy: not at all 5. Poor appetite or overeating: not at all 6. Feeling bad about yourself - or that you are a failure or have let yourself or your family down: not at all 7. Trouble concentrating on things, such as reading the newspaper or watching television: not at all 8. Moving or speaking so slowly that other people could have noticed. Or the opposite - being so fidgety or restless that you have been moving around a lot more than usual: not at all 9. Thoughts that you would be better off or of hurting yourself in some way: not at all Total score: 0 Depression Screening Interpretation: Negative Depression Screening Done: Yes 66419 - PHQ-9 Billing: Yes Source: Developed by Drs. Wade Flores, Bekah Blackburn, Renaldo Oliver and colleagues, with an educational reena from [employer] by [employer]. Thrive Questionnaire Date Thrive assessed: 07/26/24 I am a: Patient What is your living situation today?: I have a steady place to live Within the past 12 months, did the food you bought not last and you didn't have the money to get more?: Never true Within the past 12 months, did you worry whether your food would run out before you got money to buy more?: Never true Do you have trouble paying for medicines?: No Do you have trouble getting transportation to medical appointments?: No Do you have trouble paying your heating and electricity bill?: No Do you have trouble taking care of your child, family member or friend?: No Do you have trouble with day-to-day activities such as bathing, preparing meals, shopping, managing finances, etc.?: No Are you currently unemployed and looking for a job?: No Are you interested in more education?: No Please select the resources that you would like help with: None Currently or been in a relationship where the following occur: No concerns repo rted THRIVE Score: 0 AUDIT C Alcohol Use Questionnaire (AUDIT-C) 1. How often do you have a drink containing alcohol?: Monthly or less 2. How many drinks containing alcohol do you have on a typical day when you are drinking?: 1 or 2 3. How often do you have six or more drinks on one occasion?: Never Total Score: 1 Score Reviewed/Action Taken: Yes CARMEN-7 AMB Questionnaire CARMEN-7 Date CARMEN - 7 assessed: 07/26/24 Feeling nervous, anxious, or on edge: 0 = Not at all Not being able to stop or control worryin = Not at all Worrying too much about different things: 0 = Not at all Trouble relaxin = Not at all Being so restless that it is hard to sit still: 0 = Not at all Becoming easily annoyed or irritable: 0 = Not at all Feeling afraid as if something awful might happen: 0 = Not at all Total CARMEN-7 score (0-4 normal; 5-9 mild; 10-14 moderate; 15-21 severe): 0 Source: Developed by Drs. Wade Flores, Bekah Blackburn, Renaldo Oliver and colleagues, with an educational reena from [employer]. Review of Systems Const Denies chills, Denies fatigue, Denies fever(s), Denies headache(s), Denies malaise and Denies weakness Eyes Denies blurry vision, Denies change in vision, Reports irritation (with mild redness of the left eye - improving with Rx) and Denies itchy eyes ENT Denies dysphagia, Denies dizziness, Denies otalgia, Denies headache(s), Denies nasal congestion, Denies neck pain, Denies odynophagia and Denies sore throat Card Denies chest pain, Denies rapid heart rate, Denies irregular heart rhythm, Denies palpitations and Denies dyspnea Resp Denies chest congestion, Denies cough, Denies dyspnea and Denies wheezing GI Denies abdominal pain, Denies bloating, Denies constipation, Denies dysphagia, Denies heartburn, Denies diarrhea, Denies nausea, Denies odynophagia and Denies vomiting Denies hematuria, Denies difficulty urinating, Denies dysuria, Denies urinary frequency and Denies urinary urgency Musc Denies back pain, Reports arthralgias (over the base of the right thumb), Denies joint swelling, Denies muscle weakness and Denies neck pain Skin/Breast Denies change in pigmentation, Denies lesions, Denies rash and Denies unusual bruising Neuro Denies dizziness, Denies headache(s), Denies paresthesias and Denies weakness Endo Denies fatigue and Denies palpitations Aller/Immun Denies itchy eyes and Denies wheezing Physical exam (Primary Care) Vital Signs: Last Vital Signs Pulse 80 07/26/24 15:05 BP 120/84 07/26/24 15:05 Pulse Ox 96 07/26/24 15:05 Oxygen Delivery Method Room Air 07/26/24 15:05 BMI result Body Mass Index 25.1 Tobacco/Smoking Status: Tobacco use Status Tobacco use date assessed 07/26/24 07/26/24 15:08 Patient Tobacco Use Status Never used Tobacco 07/26/24 15:08 e-Cigarette/Vaping Use Never Used 07/26/24 15:08 PHQ-9: PHQ-9 Score PHQ-9: Total score 0 07/26/24 15:50 Depression Screening Interpretation: Negative Thrive Assessment: Date of Thrive Assessment Date Thrive assessed 07/26/24 07/26/24 15:08 Currently or been in a relationship where the following occur: No concerns reported Const General: no acute distress, alert and awake Orientation/consciousness: patient oriented x3 HENMT Head: Yes normocephalic and Yes atraumatic Ears: external ears normal, TM's normal bilaterally and EAC's normal General nose exam: No nasal discharge present Face and sinus: Yes normal facial exam and Yes sinuses nontender Teeth and gingiva: dentition normal Throat: Yes posterior oropharynx normal and Yes tonsils normal (no TP congestion) Eyes Conjunctivae: conjunctivae normal (in the right eye) and conjunctival abnormal left (mild) conjunctival injection; without discharge Pupils: Equal, round and reactive pupils present EOM: EOMs intact bilaterally Neck Neck: Yes supple and No lymphadenopathy Thyroid: Thyroid normal Resp Auscultation: clear to auscultation bilaterally, no rales and no wheezes Cardio Rate: regular rate Rhythm: regular rhythm Heart sounds: Murmur heart sound present systolic soft, II/ and at the left sternal border GI Palpation (GI): Soft to palpation, nontender and No hepatosplenomegaly present Auscultation: normal bowel sounds General: Yes no CVA tenderness Back/Spine/Pelvis Back: no CVA tenderness Thoracic/Lumbar Spine: thoracic and lumbar spine normal to inspection Skin Lesions: no lesions Rashes: no rashes Neuro General: patient oriented x3, moves all extremities, no focal motor deficits and CN's II-XI intact bilaterally Cranial nerves: Yes Equal, round and reactive pupils present Cognition (Neuro): normal cognition Gait exam (Neuro): Normal gait present Extrem General: Yes no clubbing, cyanosis or edema Right upper extremity: Extremity exam: right hand Details: tenderness Location: of the thumb Location: at the MCP joint and no swelling Coding Level of Care Code Est Pt Prev Care 40-64y(50838) Diagnoses Annual physical exam Z00.00 Mild intermittent asthma without complication J45.20 Asthma severity: mild Asthma persistence: intermittent Asthma complication type: uncomplicated Mixed hyperlipidemia E78.2 Cardiac murmur R01.1 Bicuspid aortic valve Q23.1 Aortic dilatation I77.819 Pain of right thumb M79.644 Acute conjunctivitis of left eye, unspecified acute conjunctivitis type H10.32 Conjunctivitis type: acute Acute conjunctivitis type: unspecified Laterality: left Additional Codes PHQ-9 - 96722 - PHQ-9 Billing: Yes ([id number]) Assessment & Plan Assessment & Plan (1) Annual physical exam: Code(s): Z00.00 - Encounter for general adult medical examination without abnormal findings Category: Medical Plan: Check labs SARAH He is currently up-to-date with his colon cancer screening - had his colonoscopy last done in December 2023 and his next colonoscopy will be in 10 years (2033) (2) Asthma: Code(s): J45.909 - Unspecified asthma, uncomplicated Category: Medical Qualifiers: Asthma severity: mild Asthma persistence: intermittent Asthma complication type: uncomplicated Qualified Code(s): J45.20 - Mild intermittent asthma, uncomplicated Plan: Stable/controlled Continue Arnuity Ellipta 100 mcg 1 inhalation QD and Ventolin HFA 1 to 2 inhalations Q 6 hours PRN (3) Mixed hyperlipidemia: Comment: 05/2023 = TC 279, TG 200, HDL 84, LDL 155 Code(s): E78.2 - Mixed hyperlipidemia Category: Medical Plan: Reinforced low cholesterol diet Patient is reminded that his cholesterol levels were elevated when they were last checked over a year ago in May 2023 - his total cholesterol was at 279 mg/dL and even though his HDL was high at 84 mg/dL, his LDL cholesterol was also high at 155 mg/dL Will have patient recheck his fasting lipids SARAH for follow-up (4) Cardiac murmur: Code(s): R01.1 - Cardiac murmur, unspecified Category: Medical Plan: Echocardiogram done back in July 2023 revealed (+) mild MR and mild TR, which are likely the source of his cardiac murmur His LV ejection fraction was normal at 60-65% with normal diastolic filling pattern and normal RV systolic pressure as well (5) Bicuspid aortic valve: Code(s): Q23.1 - Congenital insufficiency of aortic valve Category: Medical Plan: Patient also has a bicuspid aortic valve seen incidentally on his echocardiogram done in July 2023, without any abnormal doppler findings He has been advised that this is a congenital heart defect were in the aortic valve has only 2 leaflets instead of the usual 3, and he will need to be monitored regularly for any changes to his aortic valve in the future He currently does not have any aortic valve stenosis or regurgitation so no intervention is needed at this time Will also consider referring him to cardiology for continuing management and surveillance (6) Aortic dilatation: Comment: (+) bicuspid aortic valve with moderately dilated aortic root at 4.6 cm and upper limits of normal ascending aortic size at 3.6 cm seen on echo in July 2023 Code(s): I77.819 - Aortic ectasia, unspecified site Category: Medical Plan: His echocardiogram also revealed the presence of a moderately dilated aortic root at 4.6 cm and upper limits of normal ascending aortic size at 3.6 cm, with no gross pericardial effusion This will also need to be monitored regularly for any changes in the future Patient is advised to avoid any heavy exertion or strenuous activities as much as possible For completion, will include screening test for syphilis to r/o any potential etiology for his aortic root dilatation Will have him get a follow up echocardiogram when he returns in 6 months for his next appointment (7) Pain of right thumb: Code(s): M79.644 - Pain in right finger(s) Category: Medical Plan: Will send him for x-rays of the right hand/thumb for further evaluation Discussed with patient that he likely has tendinitis of the MCP of his thumb or degenerative arthritis of the thumb joint (8) Conjunctivitis: Code(s): H10.9 - Unspecified conjunctivitis Category: Medical Qualifiers: Conjunctivitis type: acute Acute conjunctivitis type: unspecified Laterality: left Qualified Code(s): H10.32 - Unspecified acute conjunctivitis, left eye Plan: Improving - continue Erythromycin ophthalmic ointment 0.5 inches apply into the affected eye TID to complete a 7 days course Plan Follow up in 6 months Orders: Orders Complete Blood Count Auto Diff 07/26/24 D64.9 - Anemia, unspecified, Z00.00 - Encounter for general adult medical examination without abnormal findings Lipid Panel 07/26/24 E78.00 - Pure hypercholesterolemia, unspecified, Z00.00 - Encounter for general adult medical examination without abnormal findings Comprehensive [place]. Panel Fast 07/26/24 E78.00 - Pure hypercholesterolemia, unspecified, Z00.00 - Encounter for general adult medical examination without abnormal findings TSH reflex Free T4 07/26/24 E78.00 - Pure hypercholesterolemia, unspecified, Z00.00 - Encounter for general adult medical examination without abnormal findings UA CC w/rflx Micro + Cult 07/26/24 R30.0 - Dysuria, Z00.00 - Encounter for general adult medical examination without abnormal findings Vitamin D 25-OH Total 07/26/24 E55.9 - Vitamin D deficiency, unspecified, Z00.00 - Encounter for general adult medical examination without abnormal findings Prostate Specific Antigen Scr 07/26/24 Z00.00 - Encounter for general adult medical examination without abnormal findings CA echo transthoracic complete 6 Months I77.819 - Aortic ectasia, unspecified site, Q23.1 - Congenital insufficiency of aortic valve Syphilis Screen 07/26/24 I77.819 - Aortic ectasia, unspecified site XR hand RT min 3V 07/26/24 M79.644 - Pain in right finger(s)
== END 2024-07-26 15:58 | disposition home or self-care (01) ==
PROVIDERS: PCP Internal Medicine; Visit Provider Internal Medicine
DX: Z00.00 Encounter for general adult medical examination without abnormal findings (principal); J45.20 Mild intermittent asthma, uncomplicated; I77.819 Aortic ectasia, unspecified site; E78.2 Mixed hyperlipidemia; R01.1 Cardiac murmur, unspecified; Q23.1 Congenital insufficiency of aortic valve; M79.644 Pain in right finger(s); H10.32 Unspecified acute conjunctivitis, left eye

== ENCOUNTER → 2024-07-26 14:55 | Outpatient (BNVA) | payer OTHER, SELFPAY | PROVIDERS: PCP Internal Medicine; Visit Provider Internal Medicine | DX: Z00.01 Encounter for general adult medical examination with abnormal findings (principal); J45.20 Mild intermittent asthma, uncomplicated; E78.2 Mixed hyperlipidemia; R01.1 Cardiac murmur, unspecified; I77.819 Aortic ectasia, unspecified site; M79.644 Pain in right finger(s); H10.32 Unspecified acute conjunctivitis, left eye; Q23.1 Congenital insufficiency of aortic valve | CPT/HCPCS: 96127 ==

== ENCOUNTER 2025-04-18 16:37 | Outpatient (AMB) | payer OTHER, SELFPAY ==
--- OUTSIDE RECORDS SUMMARY | 2025-04-18 16:40 | XMS_ITS | Clinical Summary ---
Author Organization [employer] Address [address] [place] [address] 7 [place] [address] Care Team Providers Care Hospital Admissions Clerk Name Role Phone Unavailable Primary Care Provider Unavailabl e Immunizations Immunization Administration Dates Next Due Moderna Covid-19 Vaccine 6+ Bivalent 07/20/2022 Social History Tobacco Use Types Packs/Day Years Used Date Smoking Tobacco: Never Assessed Sex and Gender Information Value Date Recorded Sex Assigned at Male 05/30/2022 10:29 AM EDT Legal Sex Male 10:29 AM EDT Gender Identity Male 05/30/2022 10:29 AM EDT Sexual Orientation Choose not to disclose 2021 10:29 AM EDT Plan of Treatment Health Maintenance Due Date Last Done Comments CT Colonography 1964 Colonoscopy 1964 Colorectal Cancer Screening 1964 Depression Screening 1964 FIT DNA/Cologuard 1964 FIT 1964 FOBT 1964 HIV Screening 1964 Lipid Panel 1964 SDOH Screening 1964 Sigmoidoscopy 1964 Disability Screening 1964 Alcohol/Substance Use Screening 1976 Tobacco Screening 1976 Hepatitis C Screening 1982 DTaP/Tdap/Td Vaccines (1 - Tdap) 1983 Pneumococcal Vaccine: 50+ Years (1 of 1 - PCV) 2014 Zoster Vaccines (1 of 2) 2014 Hepatitis B Vaccines (3 of 3 - 19+ 3-dose series) 02/19/2023 09/22/2022, 08/22/2022 Influenza Vaccine (#1) 2025 05/09/2024, 2022 RSV Patients and Patients Aged 60 years or older (1 - 1-dose 75+ series) 2039 COVID-19 Vaccine Completed 05/22/2024, , 07/20/2022, Additional history exists HIB Vaccines Aged Out No longer eligi ble based on patient's age to complete this topic HPV Vaccines Aged Out No longer eligi ble based on patient's age to complete this topic Hepatitis A Vaccines Aged Out No long er eligible based on patient's age to complete this topic IPV Vaccines Aged Out No longer eligi ble based on patient's age to complete this topic Meningococcal B Vaccine Aged Out No l onger eligible based on patient's age to complete this topic Meningococcal Vaccine Aged Out No mely stuart eligible based on patient's age to complete this topic RSV under 20 months Aged Out No longe r eligible based on patient's age to complete this topic Rotavirus Vaccines Aged Out No longer eligible based on patient's age to complete this topic Insurance
--- OUTSIDE RECORDS SUMMARY | 2025-04-18 16:40 | XMS_ITS | Encounter Summary ---
Author Organization [facility] Address [address] [place] [phone] Phone Care Team Providers Care Chief Librarian Circulation Department Name Role Phone Jesus Joseph MD Primary Care Provider [phone] Reason for Referral * Physical Therapy - Closed Specialty Diagnoses / Procedures Referred By Stanislav celestin Referred To Contact Physical Therapy Diagnoses Encounter for rehabilitation Jesus Joseph MD Phone: tel: fax: [email or web address] [address] [place] [address] Phone: tel: Referral ID Status Reason Start Date Expiration Date Visits Re quested Visits Authorized [id number] Closed 02/08/2018 02/08/2019 1 1 Encounter Details Date Type Department Care Team (Latest Contact Info) Description 02/08/2018 Transcribe Orders [facility] [address] [place] [address] Jesus Joseph MD [address] [place] [address] [email or web address] Encounter for rehabilitation (Primary Dx) Social History Tobacco Use Types Packs/Day Years Used Date Smoking Tobacco: Never Smokeless Tobacco: Never Alcohol Use Standard Drinks/Week Comments Yes 0 (1 standard drink = 0.6 oz pur e alcohol) a few drinks weekly Sex and Gender Information Value Date Recorded Sex Assigned at Male 02/01/2018 2:44 PM EDT Legal Sex Male 9:42 PM EDT Gender Identity Male 02/01/2018 2:44 PM EDT Sexual Orientation Straight 02/01/2018 2: 44 PM EDT documented as of this encounter Plan of Treatment Scheduled Referrals Name Type Priority Associated Diagnoses Orde r Schedule Ambulatory referral to [facility] Physical Therapy Outpatient Referral Routine Encounter for rehabilitation Ordered: 02/08/2018 documented as of this encounter Visit Diagnoses Diagnosis Encounter for rehabilitation- Primary documented in this encounter Care Teams Chief Librarian Circulation Department Relationship Specialty Start Date End Date Jesus Joseph MD [address] [place] [phone] [email or web address] PCP - General Family Medicine 02/01/18 documented as of this encounter Additional Source Comments The information contained in this document represents components of the legal health record. It is not the complete legal health record.[facility]
--- OUTSIDE RECORDS SUMMARY | 2025-04-18 16:40 | XMS_ITS | Clinical Summary ---
Author Organization [facility] Address [address] [place] [address] [place] [phone] Phone Care Team Providers Care Delivery Recruiter Name Role Phone Jesus Joseph MD Primary Care Provider [phone] Allergies No known active allergies Medications ibuprofen (ADVIL,MOTRIN) 600 MG tablet Take 1 tablet (600 mg total) by mouth every 6 (six) hours as needed for pain (specific location in comments). 20 tablet 02/01/2018 Active cyclobenzaprine (FLEXERIL) 10 MG tablet Take 1 tablet (10 mg total) by mouth 3 (three) times a day as needed (muscle spasm). 15 tablet 02/01/2018 Active Social History Tobacco Use Types Packs/Day Years Used Date Smoking Tobacco: Never Smokeless Tobacco: Never Alcohol Use Standard Drinks/Week Comments Yes 0 (1 standard drink = 0.6 oz pur e alcohol) a few drinks weekly Education Answer Date Recorded Are you interested in more education? Not on laurie e 11/25/2022 Are you concerned about learning? Not on file 11/25/2022 No 11/25/2022 No 11/25/2022 Digital Access Answer Date Recorded No 12/26/2022 No 12/26/2022 No 12/26/2022 Reliable internet access at home? Not on file 12/26/2022 Device with a working camera? Not on file Sex and Gender Information Value Date Recorded Sex Assigned at Male 02/01/2018 2:44 PM EDT Legal Sex Male 9:42 PM EDT Gender Identity Male 02/01/2018 2:44 PM EDT Sexual Orientation Straight 02/01/2018 2: 44 PM EDT Last Filed Vital Signs Vital Sign Reading Time Taken Comments Blood Pressure 142/96 02/01/2018 6:06 PM EDT Pulse 85 02/01/2018 6:06 PM EDT Temperature 36.2 C (97.1 F) 02/01/2018 1:59 PM EDT Respiratory Rate 14 02/01/2018 6:06 PM EDT Oxygen Saturation 98% 02/01/2018 6:06 PM EDT Inhaled Oxygen Concentration - - Weight 74.8 kg (165 lb) 02/01/2018 1:59 PM EDT Height 185.4 cm (6' 1 ) 02/01/2018 1:59 PM EDT Body Mass Index 21.77 02/01/2018 1:59 PM EDT Plan of Treatment Not on file Medical Devices Not on file Insurance [employer]TM) by [employer] NET PARTIAL [employer]TM) by [employer]AF[employer] PART[employer] PARTIAL HE[employer] SAFETY NET PARTIAL HEALTH SAFETY NET PART[employer] S[employer] PART[employer] S[employer] NET PARTIAL Care Teams Delivery Recruiter Relationship Specialty Start Date End Date [facility] [place] [phone] [email or web address] PCP - General Family Medicine 02/01/18 Additional Source Comments The information contained in this document represents components of the legal health record. It is not the complete legal health record.[facility]
[2025-04-18 16:41] VITALS: BP 112/78; PULSE 77; O2SAT 95; BMI 22.6
--- NOTE | 2025-04-18 16:41 | MHC.PC.OV ---
Vital Signs 04/18/25 16:41 Height 6 ft 1 in Weight 171 lb 2 oz BMI 22.6 BP 112/78 Blood Pressure Location Lt brachial Position Sitting Pulse 77 Pulse Source Pulse Oximeter Pulse Oximetry (%) 95 Oxygen Delivery Method Room Air Intake Visit Reasons: 6 month follow up Express Manager Required: No Accompanied by: Self / Same As Patient Allergies No Known Allergies Allergy (Verified 04/18/25 17:17) Medication List - Last Reconciled 04/18/25 by Fadi Salinas MD albuterol sulfate 90 mcg/actuation (Ventolin HFA) 2 puffs inhalation Q6H PRN 30 days Arnuity Ellipta 100 mcg/actuation (fluticasone furoate) 1 inh inhalation DAILY NS erythromycin 0.5 inches ophthalmic (eye) TID 7 days Tobacco use date assessed: 04/18/25 Dental Screening Dental Screen Date: 04/18/25 Did you have a dental visit in the last 12 months?: Yes Did you have a dental problem in the last 6 months where you did not have access to dental care?: No Was dental information given to patient?: Patient has dentist HPI 6 month follow up HPI Details Patient comes in today for his follow up visit States that he feels okay Notes that he has been able to lose a lot of weight since his last visit as he usually walks a lot, especially when the weather is conducive to outdoor activities He is still experiencing the recurrent pain over the base of his right thumb that he had from over a year or two ago - states that he never went and got his x-rays done and plans to get these done as soon as he can He also never went for his labs when they were ordered at his last physical - is wondering if he can go and get these done at any time or if they have to be reordered He denies any headaches or dizziness Denies any chest pains, no shortness of breath No nausea/vomiting, no abdominal pain No change in bowel habits noted States that he would like to have his 2 Rx for his inhalers refilled today [facility] Medical History Aortic dilatation Bicuspid aortic valve Mixed hyperlipidemia Asthma Surgical History History of colonoscopy Hx of inguinal hernia repair Family History Father Brain cancer Brother Ulcerative colitis Heart attack Mother Heart problem Other Hypertension Social History Housing: Apartment Patient Tobacco Use Status: Never used Tobacco e-Cigarette/Vaping Use: Never Used service: No Current occupational status: employed Current occupational exposures/hazards: No Cognitive needs: No Hearing needs: No Vision needs: No Questionnaire PHQ-9 Over the last 2 weeks, how often have you been bothered by any of the following problems? 1. Little interest or pleasure in doing things: not at all 2. Feeling down, depressed, or hopeless: not at all 3. Trouble falling or staying asleep, or sleeping too much: not at all 4. Feeling tired or having little energy: not at all 5. Poor appetite or overeating: not at all 6. Feeling bad about yourself - or that you are a failure or have let yourself or your family down: not at all 7. Trouble concentrating on things, such as reading the newspaper or watching television: not at all 8. Moving or speaking so slowly that other people could have noticed. Or the opposite - being so fidgety or restless that you have been moving around a lot more than usual: not at all 9. Thoughts that you would be better off or of hurting yourself in some way: not at all Total score: 0 Depression Screening Interpretation: Negative Depression Screening Done: Yes 50699 - PHQ-9 Billing: Yes Source: Developed by Drs. Wade Flores, Bekah Blackburn, Renaldo Oliver and colleagues, with an educational reena from [employer]. Thrive Questionnaire Date Thrive assessed: 04/18/25 I am a: Patient What is your living situation today?: I have a steady place to live Within the past 12 months, did the food you bought not last and you didn't have the money to get more?: Never true Within the past 12 months, did you worry whether your food would run out before you got money to buy more?: Never true Do you have trouble paying for medicines?: No Do you have trouble getting transportation to medical appointments?: No Do you have trouble paying your heating and electricity bill?: No Do you have trouble taking care of your child, family member or friend?: No Do you have trouble with day-to-day activities such as bathing, preparing meals, shopping, managing finances, etc.?: No Are you currently unemployed and looking for a job?: No Are you interested in more education?: No Please select the resources that you would like help with: None Currently or been in a relationship where the following occur: No concerns reported THRIVE Score: 0 AUDIT C Alcohol Use Questionnaire (AUDIT-C) 1. How often do you have a drink containing alcohol?: Monthly or less 2. How many drinks containing alcohol do you have on a typical day when you are drinking?: 1 or 2 3. How often do you have six or more drinks on one occasion?: Never Total Score: 1 Score Reviewed/Action Taken: Yes CARMEN-7 AMB Questionnaire CARMEN-7 Date CARMEN - 7 assessed: 07/26/24 Source: Developed by Drs. Wade Flores, Bekah Blackburn, Renaldo Oliver and colleagues, with an educational reena from [employer]. Review of Systems Const Denies chills, Denies fatigue, Denies fever(s) and Denies headache(s) ENT Denies dysphagia, Denies dizziness, Denies otalgia, Denies headache(s), Denies neck pain, Denies odynophagia and Denies sore throat Card Denies chest pain, Denies rapid heart rate, Denies palpitations and Denies dyspnea Resp Denies chest congestion, Denies cough, Denies dyspnea and Denies wheezing GI Denies abdominal pain, Denies constipation, Denies dysphagia, Denies heartburn, Denies diarrhea, Denies nausea, Denies odynophagia and Denies vomiting Denies difficulty urinating, Denies dysuria and Denies urinary frequency Musc Denies back pain, Reports arthralgias (over the base of the right thumb), Denies joint swelling and Denies neck pain Skin/Breast Denies rash Neuro Denies dizziness, Denies headache(s) and Denies paresthesias Endo Denies fatigue and Denies palpitations Aller/Immun Denies wheezing Physical exam (Primary Care) Vital Signs: Last Vital Signs Pulse 77 04/18/25 16:41 BP 112/78 04/18/25 16:41 Pulse Ox 95 04/18/25 16:41 Oxygen Delivery Method Room Air 04/18/25 16:41 BMI result Body Mass Index 22.6 Tobacco/Smoking Status: Tobacco use Status Tobacco use date assessed 04/18/25 04/18/25 16:45 Patient Tobacco Use Status Never used Tobacco 04/18/25 16:45 e-Cigarette/Vaping Use Never Used 04/18/25 16:45 PHQ-9: PHQ-9 Score PHQ-9: Total score 0 04/18/25 17:12 Depression Screening Interpretation: Negative Thrive Assessment: Date of Thrive Assessment Date Thrive assessed 03/18/25 04/18/25 16:45 Currently or been in a relationship where the following occur: No concerns reported Const General: no acute distress and alert HENMT Ears: TM's normal bilaterally and EAC's normal Throat: Yes posterior oropharynx normal and Yes tonsils normal (no TP congestion) Neck Neck: Yes supple and No lymphadenopathy Thyroid: Thyroid normal Resp Auscultation: clear to auscultation bilaterally, no rales and no wheezes Cardio Rate: regular rate Rhythm: regular rhythm Heart sounds: Murmur heart sound present systolic soft, II/ and at the left sternal border GI Palpation (GI): Soft to palpation and nontender Auscultation: normal bowel sounds General: Yes no CVA tenderness Back/Spine/Pelvis Back: no CVA tenderness Thoracic/Lumbar Spine: thoracic and lumbar spine normal to inspection Skin Rashes: no rashes Extrem General: Yes no clubbing, cyanosis or edema Right upper extremity: Extremity exam: right hand Details: tenderness Location: of the thumb Location: at the MCP joint and no swelling Coding Level of Care Code Est Pt Level 4 (68514) Diagnoses Mild intermittent asthma without complication J45.20 Asthma complication type: uncomplicated Asthma persistence: intermittent Asthma severity: mild Mixed hyperlipidemia E78.2 Cardiac murmur R01.1 Bicuspid aortic valve Q23.1 Aortic dilatation I77.819 Pain of right thumb M79.644 Additional Codes PHQ-9 - 83151 - PHQ-9 Billing: Yes ([id number]) Assessment & Plan Assessment & Plan (1) Asthma: Code(s): J45.909 - Unspecified asthma, uncomplicated Category: Medical Qualifiers: Asthma complication type: uncomplicated Asthma persistence: intermittent Asthma severity: mild Qualified Code(s): J45.20 - Mild intermittent asthma, uncomplicated Plan: Stable/controlled Continue Arnuity Ellipta 100 mcg 1 inhalation QD and Ventolin HFA 1 to 2 inhalations Q 6 hours PRN - Rx refilled (2) Mixed hyperlipidemia: Comment: 05/2023 = TC 279, TG 200, HDL 84, LDL 155 Code(s): E78.2 - Mixed hyperlipidemia Category: Medical Plan: Reinforced low cholesterol diet Patient is reminded that his cholesterol levels were elevated when they were last checked almost 2 years ago in May 2023 - his total cholesterol was at 279 mg/dL and even though his HDL was high at 84 mg/dL, his LDL cholesterol was also high at 155 mg/dL Will have patient recheck his fasting lipids SARAH for follow-up - previous lab orders are all updated today (3) Cardiac murmur: Code(s): R01.1 - Cardiac murmur, unspecified Category: Medical Plan: Echocardiogram done back in July 2023 revealed (+) mild MR and mild TR, which are likely the source of his cardiac murmur His LV ejection fraction was normal at 60-65% with normal diastolic filling pattern and normal RV systolic pressure as well (4) Bicuspid aortic valve: Code(s): Q23.1 - Congenital insufficiency of aortic valve Category: Medical Plan: Patient also has a bicuspid aortic valve seen incidentally on his echocardiogram done in July 2023, without any abnormal doppler findings He has been advised that this is a congenital heart defect wherein the aortic valve has only 2 leaflets instead of the usual 3, and he will need to be monitored regularly for any changes to his aortic valve in the future He currently does not have any aortic valve stenosis or regurgitation so no intervention is needed at this time Will also consider referring him to cardiology for continuing management and surveillance in the future (5) Aortic dilatation: Comment: (+) bicuspid aortic valve with moderately dilated aortic root at 4.6 cm and upper limits of normal ascending aortic size at 3.6 cm seen on echo in July 2023 Code(s): I77.819 - Aortic ectasia, unspecified site Category: Medical Plan: His echocardiogram also revealed the presence of a moderately dilated aortic root at 4.6 cm and upper limits of normal ascending aortic size at 3.6 cm, with no gross pericardial effusion This will also need to be monitored regularly for any changes in the future Patient is advised to avoid any heavy exertion or strenuous activities as much as possible For completion, will include screening test for syphilis to r/o any potential etiology for his aortic root dilatation Will now have him get a follow up echocardiogram SARAH (6) Pain of right thumb: Code(s): M79.644 - Pain in right finger(s) Category: Medical Plan: We previously sent him for x-rays of the right hand/thumb for further evaluation but he was not able to get these done yet - he is advised that he can go and get these done SARAH Discussed with patient that he likely has tendinitis of the MCP of his thumb or degenerative arthritis of the thumb joint but we will wait and see how his x-rays come out first before deciding on the next course of action Plan To return as scheduled in June 2025 for his next annual physical examination Orders: Orders CA echo transthoracic complete Today I77.819 - Aortic ectasia, unspecified site, Q23.1 - Congenital insufficiency of aortic valve, R01.1 - Cardiac murmur, unspecified Medications: Refilled Arnuity Ellipta 100 mcg/actuation (fluticasone furoate) 1 inh inhalation DAILY 30 ea 2RF NS albuterol sulfate 90 mcg/actuation (Ventolin HFA) 2 puffs inhalation Q6H PRN 8.5 grams 2RF shortness of breath or wheezing 30 days
== END 2025-04-18 17:19 | disposition home or self-care (01) ==
LOC: HO.HMCH 16:38
PROVIDERS: PCP Internal Medicine; Visit Provider Internal Medicine
DX: J45.20 Mild intermittent asthma, uncomplicated (principal); E78.2 Mixed hyperlipidemia; R01.1 Cardiac murmur, unspecified; Q23.1 Congenital insufficiency of aortic valve; I77.819 Aortic ectasia, unspecified site; M79.644 Pain in right finger(s)

== ENCOUNTER → 2025-04-18 16:37 | Outpatient (BNVA) | payer OTHER, SELFPAY | PROVIDERS: PCP Internal Medicine; Visit Provider Internal Medicine | DX: J45.20 Mild intermittent asthma, uncomplicated (principal); E78.2 Mixed hyperlipidemia; R01.1 Cardiac murmur, unspecified; Q23.1 Congenital insufficiency of aortic valve; I77.819 Aortic ectasia, unspecified site; M79.644 Pain in right finger(s) | CPT/HCPCS: 96127 ==

== ENCOUNTER → 2025-07-09 14:10 | Outpatient (REF) | payer OTHER, SELFPAY ==
--- NOTE | 2025-07-09 14:13 | CA_ITS ---
Transthoracic Echocardiogram Patient (Last, First, Middle): Darren Hdez J Gender: M Date of : 1965 Age: 60 Procedure Date: 07/09/2025 Procedure Type: Transthoracic Echocardiogram Location: OP Height: 185.42 cm Weight: 77.57 kg BSA: 2.01 m2 Heart Rate: bpm BP: 118 / 72 mmHg Web Portal Developer: TO Referring MD: Fadi Salinas MD Compensation Expert: Pravin Young MD Symptoms: R01.1 - Cardiac murmur, unspecified Study Quality: Adequate ECG Rhythm: Sinus Conclusions: - 1. Normal LV ejection fraction 55-60% 2. Bicuspid aortic valve with calcific changes with trivial aortic regurgitation 3. Moderately dilated aortic root 4. Normal RV systolic pressure 5. No gross pericardial effusion Findings Left Ventricle Normal left ventricular size, thickness, and systolic function. The visually estimated ejection fraction is between 55-60%. Spectral Doppler is indicative of a normal filling pattern. Right Ventricle Normal right ventricular cavity size and systolic function. Atria Both atria are normal in size. There is no evidence of interatrial shunt. Aortic Valve There is a bicuspid aortic valve. There is mild calcification of the aortic valve. There is no aortic valve stenosis. There is trace (trivial) aortic valve regurgitation. Mitral Valve Normal mitral valve structure and function. There is trace mitral valve regurgitation. There is no mitral valve stenosis. Pulmonic Valve The pulmonic valve is likely normal. There is trace to mild pulmonic valve regurgitation. Tricuspid Valve Normal tricuspid valve structure. There is trace tricuspid valve regurgitation. The right ventricular systolic pressure is normal. The right ventricular systolic pressure is 24 mmHg. Normal right atrial pressure. There is no evidence of pulmonary hypertension. Great Vessels The pulmonary artery was not well visualized. There is moderate dilatation of the sinuses of Valsalva measuring 4.60 cm. Venous The inferior vena cava is normal in size and collapses greater than 50% with inspiration. Pericardium/Pleural There is no evidence of pericardial effusion. Prior Study Comparison No significant change compared to prior study dated: 08/10/2023. Measurements 2D Linear Measurements IVSd: 1.09 0.6-0.9/0.6-1.0 cm LVIDd: 4.84 3.9-5.3/4.2-5.9 cm LVIDd Index: 2.41 2.4-3.2/2.2-3.1 cm/m2 LVIDs: 3.27 2.0-3.6 cm LVPWd: 0.99 0.7-1.1 cm LA Diam: 3.00 2.7-3.8/3.0-4.0 cm LAIDs Index: 1.49 1.5-2.3 cm/m2 LV Mass: 227.31 67-162/88-224 g LV Mass Index: 113.09 43-95/49-115 g/m2 LVOT Diam: 2.50 3.0+(-)1.3 cm 2D Systolic Function EF 4C: 54.90 >55% EF 2C: 58.80 >55% EF BiP: 56.80 >55% Mitral Valve MV Pk E: 0.55 MV PK A: 0.48 MV Decel Time: 243.00 E/A: 1.10 E'Lateral: 8.16 E'Medial: 6.74 E/E' Med: 8.10 E/E' Lat: 6.70 PHT: 71.00 MVA PHT: 3.10 Decel Granite: 2.25 Aortic Valve AoV Pk Alex: 1.91 AoV Mn Alex: 1.44 AoV VTI: 0.38 AoV Pk Grad: 15.00 Aov Mn Grad: 9.00 RUBEN Cont.VTI: 1.90 LVOT LVOT Pk Alex: 0.74 LVOT Mn Alex: 0.50 LVOT VTI: 0.15 LVOT Pk Grad: 2.00 LVOT Mn Grad: 1.00 LVOT Diam: 2.50 LVOT Area: 4.91 Diastolic Function MV Pk E: 0.55 MV Pk A: 0.48 E/A: 1.10 E'Medial: 6.74 E/E' Med: 8.10 E' Laterial: 8.16 E/E' Lat: 6.70 Right Ventricle TAPSE (mm): 19.10 TVS' Alex: 12.30 Tricuspid Valve TR Pk Alex: 2.27 TR Pk Grad: 21.00 RA Press: 3.00 RVSP: 24.00 Great Vessels Aorta Sinus of Valsalva: 4.60 2.0-3.5 cm Ao Asc: 3.50 2.1-3.4 cm Ao Arch: 2.90 Updated in Other Vendor System with Status of Final Pravin Young MD electronically signed on 07/09/2025 4:35:36 PM with status of Final
--- OUTSIDE RECORDS SUMMARY | 2025-07-09 22:07 | XMS_ITS | Encounter Summary ---
Author Organization [facility] Address [address] [place] [id number] Phone Care Team Providers Care Sock Folder Name Role Phone Jesus Joseph MD Primary Care Provider [phone] Reason for Referral * Physical Therapy - Closed Specialty Diagnoses / Procedures Referred By Stanislav celestin Referred To Contact Physical Therapy Diagnoses Encounter for rehabilitation Jesus Joseph MD Phone: tel: fax: [email or web address] [facility] [address] [place] [address] Phone: tel: Referral ID Status Reason Start Date Expiration Date Visits Re quested Visits Authorized [id number] Closed 02/08/2018 02/08/2019 1 1 Encounter Details Date Type Department Care Team (Latest Contact Info) Description 02/08/2018 Transcribe Orders [facility] [address] [place] [address] Jesus Joseph MD [address] [place] [address] [email or web address] Encounter for rehabilitation (Primary Dx) Social [...] Diagnoses Orde r Schedule Ambulatory referral to [facility] Physical Therapy Outpatient Referral Routine Encounter for rehabilitation Ordered: 02/08/2018 documented as of this encounter Visit Diagnoses Diagnosis Encounter for rehabilitation- Primary documented in this encounter Care Teams Sock Folder Relationship Specialty Start Date End Date Jesus Joseph MD [address] [place] [id number] [email or web address] PCP - General Family Medicine 02/01/18 documented as of this encounter Additional Source Comments The information contained in this document represents components of the legal health record. It is not the complete legal health record.[facility]
--- OUTSIDE RECORDS SUMMARY | 2025-07-09 22:07 | XMS_ITS | Clinical Summary ---
Author Organization [facility] Address [address] [place] [address] [place] [phone] Phone Care Team Providers Care Luncheonette Operator Name Role Phone Jesus Joseph MD Primary Care Provider [phone] Allergies No known active allergies Medications ibuprofen [...] file Medical Devices Not on file Insurance [employer] NET PARTIAL Care Teams Luncheonette Operator Relationship Specialty Start Date End Date [facility] [place] [phone] [email or web address] PCP - General Family Medicine 02/01/18 Additional Source Comments The information contained in this document represents components of the legal health record. It is not the complete legal health record.[facility]
--- OUTSIDE RECORDS SUMMARY | 2025-07-09 22:07 | XMS_ITS | Clinical Summary ---
Author Organization [employer] Address [address] [place] [address] [address] [place] [address] Care Team Providers Care Tub Chucker Name Role Phone Unavailable Primary Care Provider [...] - 19+ 3-dose series) 02/19/2023 09/22/2022, 08/22/2022 COVID-19 Vaccine ( - 2024- season) 2025 05/22/2024, 06/15/2023, 07/20/2022, Additional history exists Influenza Vaccine (#1) 2025 05/09/2024, 2022 RSV Patients and Patients Aged 60 years or older (1 - 1-dose 75+ series) 2039 HIB Vaccines Aged Out No longer eligi [...]
== END ==
LOC: HO.CARD 14:10
PROVIDERS: PCP Internal Medicine; Visit Provider Internal Medicine
DX: Q23.1 Congenital insufficiency of aortic valve (principal); R01.1 Cardiac murmur, unspecified; I77.819 Aortic ectasia, unspecified site
CPT/HCPCS: 93306

== ENCOUNTER → 2025-07-09 14:13 | Outpatient (BNV) | payer OTHER, SELFPAY | PROVIDERS: PCP Internal Medicine; Visit Provider Internal Medicine Cardiovascular Disease | DX: Q23.81 Bicuspid aortic valve (principal); I77.810 Thoracic aortic ectasia | CPT/HCPCS: 93306 ==